=== PATIENT | female | born 1945 | race Caucasian/White ===

== ENCOUNTER 2023-03-01 10:30 | Outpatient (AMB) | payer MEDICARE, SELFPAY ==
--- NOTE | 2023-03-01 10:55 | A.OFFVIS_ITS ---
Intake Vital Signs 3 03/01/23 10:56 Height 4 ft 10.5 in Weight 148 lb BMI 30.4 BP 124/68 Blood Pressure Location Lt brachial Position Sitting Pulse 73 Pulse Source Pulse Oximeter Pulse Oximetry (%) 95 Oxygen Delivery Method Room Air Intake Visit Reasons: Emphysema Metrology Specialist Required: No Restaurant Cook: Restaurant Cook offered & declined Accompanied by: Self / Same As Patient Allergies celecoxib [From Celebrex] Allergy (Intermediate, Verified 03/01/23 11:03) dizziness aspirin Adverse Reaction (Intermediate, Verified 03/01/23 11:03) upset stomach percoct Allergy (Intermediate, Uncoded 03/01/23 11:03) hives Medication List - Last Reconciled 03/01/23 by Brit Smyth LPN albuterol sulfate 90 mcg/actuation 1 inh inhalation QID PRN amlodipine 10 mg PO DAILY atorvastatin 20 mg PO DAILY budesonide-formoterol 80-4.5 mcg/actuation (Symbicort) 1 inh inhalation BID dicyclomine 20 mg PO TID irbesartan-hydrochlorothiazide 300-12.5 mg 1 tab PO DAILY levothyroxine 25 mcg PO DAILY omeprazole 20 mg PO DAILY HPI Emphysema 2 HPI0 Details Miguelina is a pleasant 77 year old female, former smoker with 30+ pack year history, quit 30 years ago with underlying childhood asthma, rheumatoid arthritis, hypertension, osteoporosis and GERD. She was referred by her PCP for pulmonary evaluation after chest CT revealed mild emphysema, full report below. She also reports having a PFT performed but this report is not available. She is suboptimally controlled on symbicort 80-4.5mcg and continues to report dyspnea with moderate exertion, dry cough and intermittent wheezing. She denies any pertinent family history. 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 She also notes cardiac stress test which was reportedly unremarkable. [facility] Medical History (Updated 03/01/23 @ 22:07 by Kristen Farah NP) Hypertension Hyperlipidemia Hypothyroidism GERD (gastroesophageal reflux disease) IBS (irritable bowel syndrome) Hiatal hernia Rheumatoid arthritis Osteoporosis Surgical History (Updated 03/01/23 @ 10:34 by Eva Smith PA-C) History of colonoscopy (~2014) History of hysterectomy (~1980) Social History (Updated 03/01/23 @ 11:07 by rBit Smyth LPN) Patient Tobacco Use Status: Former Tobacco user Tobacco use type: Cigarette Cigarette Packs Per Day: 1 Cigarettes Per Day: 20 Years Smoked: 30 Review of Systems Const Denies chills, Denies excessive sweating, Denies fever(s), Denies headache(s) and Denies night sweats Eyes Denies dry eyes, Denies irritation and Denies itchy eyes ENT Reports Normal hearing present, Denies headache(s), Denies nasal congestion, Denies nasal discharge, Denies post nasal drip and Denies sore throat Card Denies chest pain, Denies chest pain at rest, Denies chest pain with activity, Denies claudication, Denies leg edema, Denies orthopnea and Denies paroxysmal nocturnal dyspnea Resp Denies chest congestion, Denies excessive phlegm production, Denies pain on inspiration, Denies pain with cough and Denies stridor Musc Denies myalgias Neuro Reports Normal hearing present and Denies headache(s) Endo Denies excessive sweating Audi/Lymph Denies lymphadenopathy Aller/Immun Denies itchy eyes and Denies seasonal rhinorrhea Physical Exam Vital Signs: Last Vital Signs Pulse 73 03/01/23 10:56 BP 124/68 03/01/23 10:56 Pulse Ox 95 03/01/23 10:56 Oxygen Delivery Method Room Air 03/01/23 10:56 BMI result Body Mass Index 30.4 Const General: cooperative, healthy appearing, comfortable, no acute distress, well developed and alert Orientation/consciousness: patient oriented x3 Limitations: no limitations HEENT Head: Yes normal to inspection, Yes normocephalic and Yes atraumatic Ears: hearing grossly normal bilaterally and external ears normal Eyes General: appearance normal, both eyes and all related structures Eyelids: Yes eyelids normal Sclerae: sclerae normal EOM: EOMs intact bilaterally Neck Neck: Yes normal visual inspection and Yes no lymphadenopathy Lymphatic: no lymphadenopathy noted Chest Chest palpation & inspection: normal inspection of the chest Resp Effort & Inspection: normal respiratory effort, able to speak in complete sentences, no audible wheezes, no cough, no stridor, not tachypneic, no tripod positioning and no use of accessory muscles Auscultation: clear to auscultation bilaterally Cardio Jugular venous distension: no JVD Rate: regular rate Rhythm: regular rhythm Skin Other: warm, dry General skin exam: no rashes or lesions noted Neuro General: patient oriented x3 Cranial nerves: Yes Normal hearing present Cognition (Neuro): normal cognition Gait exam (Neuro): Normal gait present Extrem General: Yes normal to inspection, Yes capillary refill normal, Yes no clubbing, cyanosis or edema and Yes no pedal edema Psych Appearance: grossly normal and well kempt Speech and movement: Normal speech and movement present and Clear speech present Affect: normal affect Attitude: cooperative Thought process: Normal thought process present Thought content: Normal thought content present Insight: Good insight present (Psych) Judgement: Good judgement present (Psych) Results Reviewed Results Reviewed: Assessment & Plan Assessment & Plan (1) Asthma: Code(s): J45.909 - Unspecified asthma, uncomplicated (2) Emphysema lung: Code(s): J43.9 - Emphysema, unspecified (3) Personal history of tobacco use: Code(s): Z87.891 - Personal history of nicotine dependence Plan Miguelina's symptoms are likely related to underlying asthma/COPD, unclear severity. Will have patient sign a release to obtain most recent PFT. Reviewed chest CT, full report above, with no findings of suspicious nodules, mild emphysematous changes noted. Will increase symbicort dose and reviewed when to use albuterol MDI. Patient will call in two weeks to review reponse to increased symbicort. All questions were answered and patient is in agreement of plan. Will follow up in 3 months or sooner if needed. Medications: New 2 budesonide-formoterol 160-4.5 mcg/actuation (Symbicort) 2 puffs inhalation Q12H 10.2 grams 3RF Coding Level of Care Code New Pt Level 4 (00830) Diagnoses Asthma J45.909 Emphysema lung J43.9 Personal history of tobacco use Z87.892
[2023-03-01 10:56] VITALS: BP 124/68; PULSE 73; O2SAT 95; BMI 30.4
== END 2023-03-01 11:44 | disposition home or self-care (01) ==
PROVIDERS: PCP Physician Assistant Medical; Visit Provider Nurse Practitioner Family
DX: J45.909 Unspecified asthma, uncomplicated (principal); J43.9 Emphysema, unspecified; Z87.891 Personal history of nicotine dependence
CPT/HCPCS: 99204

== ENCOUNTER → 2023-03-01 10:30 | Outpatient (BNVA) | payer MEDICARE, SELFPAY | PROVIDERS: PCP Physician Assistant Medical; Visit Provider Nurse Practitioner Family | DX: J45.909 Unspecified asthma, uncomplicated (principal); J43.9 Emphysema, unspecified; Z87.891 Personal history of nicotine dependence | CPT/HCPCS: 99202 ==

== ENCOUNTER 2023-09-06 08:17 | Outpatient (AMB) | payer MEDICARE, SELFPAY ==
[2023-09-06 08:22] VITALS: BP 132/68; PULSE 69; O2SAT 97; BMI 29.9
--- NOTE | 2023-09-06 08:22 | A.OFFVIS_ITS ---
Vital Signs 09/06/23 08:22 Height 4 ft 10.5 in Weight 145 lb 8 oz BMI 29.9 BP 132/68 Blood Pressure Location Lt brachial Position Sitting Pulse 69 Pulse Source Pulse Oximeter Pulse Oximetry (%) 97 Oxygen Delivery Method Room Air Intake Visit Reasons: copd Allergies celecoxib [From Celebrex] Allergy (Intermediate, Verified 09/06/23 08:26) dizziness aspirin Adverse Reaction (Intermediate, Verified 09/06/23 08:26) upset stomach percoct Allergy (Intermediate, Uncoded 09/06/23 08:26) hives HPI HPI copd: Details: Miguelina is a pleasant 78 year old female, former smoker with 30+ pack year history, quit 30 years ago with underlying childhood asthma, rheumatoid arthritis, hypertension, osteoporosis and GERD. At the last visit, her Symbicort dose was increased from 80 mcg to 160 mcg. She reports significant improvement in wheezing and dyspnea on exertion. She continues to report intermittent productive cough with whitish yellow sputum which is present in the morning only. She denies any hospitalizations or visits to urgent care since last visit. She has not required antibiotics or prednisone. She has not required any albuterol since last visit. [facility] Medical History (Updated 03/01/23 @ 22:07 by Kristen Farah NP) Hypertension Hyperlipidemia Hypothyroidism GERD (gastroesophageal reflux disease) IBS (irritable bowel syndrome) Hiatal hernia Rheumatoid arthritis Osteoporosis Surgical History (Updated 03/01/23 @ 10:34 by Eva Smith PA-C) History of colonoscopy (~2014) History of hysterectomy (~1980) Social History Patient Tobacco Use Status: Former Tobacco user Tobacco use type: Cigarette Cigarette Packs Per Day: 1 Cigarettes Per Day: 20 Years Smoked: 30 Review of Systems Const Denies chills, Denies excessive sweating, Denies fever(s), Denies headache(s) and Denies night sweats Eyes Denies dry eyes, Denies irritation and Denies itchy eyes ENT Reports Normal hearing present, Denies headache(s), Denies nasal congestion, Denies nasal discharge, Denies post nasal drip and Denies sore throat Card Denies chest pain, Denies chest pain at rest, Denies chest pain with activity, Denies claudication, Denies leg edema, Denies dyspnea, Denies orthopnea and D enies paroxysmal nocturnal dyspnea Resp Denies chest congestion, Denies cough, Denies excessive phlegm production, Denies pain on inspiration, Denies pain with cough, Denies dyspnea, Denies stridor and Denies wheezing Musc Denies myalgias Neuro Reports Normal hearing present and Denies headache(s) Endo Denies excessive sweating Audi/Lymph Denies lymphadenopathy Aller/Immun Denies itchy eyes, Denies seasonal rhinorrhea and Denies wheezing Physical Exam Vital Signs: Last Vital Signs Pulse 69 09/06/23 08:22 BP 132/68 09/06/23 08:22 Pulse Ox 97 09/06/23 08:22 Oxygen Delivery Method Room Air 09/06/23 08:22 BMI result Body Mass Index 29.9 Const General: cooperative, healthy appearing, comfortable, no acute distress, well developed and alert Orientation/consciousness: patient oriented x3 Limitations: no limitations HEENT Head: Yes normal to inspection, Yes normocephalic and Yes atraumatic Ears: hearing grossly normal bilaterally and external ears normal Eyes General: appearance normal, both eyes and all related structures Eyelids: Yes eyelids normal Sclerae: sclerae normal EOM: EOMs intact bilaterally Neck Neck: Yes normal visual inspection and Yes no lymphadenopathy Lymphatic: no lymphadenopathy noted Chest Chest palpation & inspection: normal inspection of the chest Resp Effort & Inspection: normal respiratory effort, able to speak in complete sentences, no audible wheezes, no cough, no stridor, not tachypneic, no tripod positioning and no use of accessory muscles Auscultation: clear to auscultation bilaterally Cardio Jugular venous distension: no JVD Rate: regular rate Rhythm: regular rhythm Skin Other: warm, dry General skin exam: no rashes or lesions noted Neuro General: patient oriented x3 Cranial nerves: Yes Normal hearing present Cognition (Neuro): normal cognition Gait exam (Neuro): Normal gait present Extrem General: Yes normal to inspection, Yes capillary refill normal, Yes no clubbing, cyanosis or edema and Yes no pedal edema Psych Appearance: grossly normal and well kempt Speech and movement: Normal speech and movement present and Clear speech present Affect: normal affect Attitude: cooperative Thought process: Normal thought process present Thought content: Normal thought content present Insight: Good insight present (Psych) Judgement: Good judgement present (Psych) Assessment & Plan Assessment & Plan (1) Asthma: Code(s): J45.909 - Unspecified asthma, uncomplicated Category: Medical (2) Emphysema lung: Code(s): J43.9 - Emphysema, unspecified Category: Medical (3) Personal history of tobacco use: Code(s): Z87.891 - Personal history of nicotine dependence Category: Social Hx Plan Miguelina reports significant improvement in respiratory symptoms since increasing Symbicort. Discussed possibility of adding a LAMA to regimen if symptoms worsen. At this time she would like to continue current regimen. Never received prior PFT, will have patient sign release and attempt to obtain from [facility] again, All questions were answered and patient is in agreement of plan. Will follow up in 6 months or sooner if needed. Coding Level of Care Code Est Pt Level 4 (99787) Diagnoses Asthma J45.909 Emphysema lung J43.9 Personal history of tobacco use Z87.895
== END 2023-09-06 08:49 | disposition home or self-care (01) ==
PROVIDERS: PCP Physician Assistant Medical; Visit Provider Nurse Practitioner Family
DX: J45.909 Unspecified asthma, uncomplicated (principal); J43.9 Emphysema, unspecified; Z87.891 Personal history of nicotine dependence
CPT/HCPCS: 99214

== ENCOUNTER → 2023-09-06 08:17 | Outpatient (BNVA) | payer MEDICARE, SELFPAY | PROVIDERS: PCP Physician Assistant Medical; Visit Provider Nurse Practitioner Family | DX: J43.9 Emphysema, unspecified (principal); J45.909 Unspecified asthma, uncomplicated; Z87.891 Personal history of nicotine dependence | CPT/HCPCS: 99212 ==

== ENCOUNTER 2024-08-28 09:00 | Outpatient (AMB) | payer MEDICARE, SELFPAY ==
[2024-08-28 09:03] VITALS: BP 124/58; PULSE 64; O2SAT 96; BMI 31.2
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
--- OUTSIDE RECORDS SUMMARY | 2024-08-28 09:42 | XMS_ITS | Clinical Summary ---
Author Organization [facility] Address [address] [place] [address] Care Team Providers Care Fusing Furnace Loader Name Role Phone Melissa Carpenter Primary Care Provider [phone] Medications omeprazole OTC (PriLOSEC OTC) 20 mg EC tablet Take 1 tablet (20 mg total) by mouth 1 (one) time each day. Do not crush, chew, or split. Active omeprazole OTC (PriLOSEC OTC) 20 mg EC tabletIndication s:Gastroesophage al reflux disease with esophagitis, unspecified whether hemorrhage Take 1 tablet (20 mg total) by mouth 1 (one) time each day. Do not crush, chew, or split. 30 tablet 11 03/12/2024 Active Surgical History Surgery Date Site/Laterality Comments PARTIAL HYSTERECTOMY PROCEDURE: CO SUPRACERVICAL ABDL HYSTER W/WO RMVL TUBE OVARY COLONOSCOPY 2005 PROCEDURE: CO COLONOSCOPY STOMA DX INCLUDING COLLJ SPEC SPX; COMMENT: nl ESOPHAGOGASTRODUODENOSCOPY 09/10/08 PROCEDURE: CO EGD TRANSORAL BIOPSY SINGLE/MULTIPLE; COMMENT: Esophagus Nl, 2cm hiatal hernia, mild antral gastritis-bx: mild reactive gastropathy(no H pylori), Nl small bowel-bx.:Nl Medical History Medical History Date Comments Historical Medical DX 07/31/2008 DX:COPD; C OMMENT: 20 pack years, d/c'd 1989 Family History Medical History Relation Name Comments Hypertension Brother 1 Hypertension Brother 2 Hypertension Brother 3 Diabetes Brother 4 Hypertension Father Other: early CAD Father Hypertension Mother Hypertension Sister 1 Hypertension Sister 2 Hypertension Sister 3 Relation Name Status Comments Brother 1 Brother 2 Brother 3 Brother 4 Brother 5 Father Mother Sister 1 Sister 2 Sister 3 Sister 4 Social History Tobacco Use Types Packs/Day Years Used Date Smoking Tobacco: Former Cigarettes Q uit: 01/30/1991 Alcohol Use Standard Drinks/Week Comments No 0 (1 standard drink = 0.6 oz pur e alcohol) Comments Unknown Sex and Gender Information Value Date Recorded Sex Assigned at Not on file Legal Sex Female 9:23 AM EST Gender Identity Not on file Sexual Orientation Not on file Obstetrics History Plan of Treatment Health Maintenance Due Date Last Done Comments Pneumococcal Vaccine: 50+ Years (1 of 2 - PCV) 1966 Zoster Vaccines (1 of 2) 1997 DTaP,Tdap,and Td Vaccines (2 - Td or Tdap) 04/24/2018 04/24/2008 Cholesterol Screening (Lipid Panel) 03/28/2022 Depression Screening 03/28/2022 Falls Risk Assessment 03/28/2022 Hepatitis C Screening 03/28/2022 Osteoporosis Screening (Bone Density Screening) 03/28/2022 Social Influencers of Health Screening 03/28/2022 Hypertension/CHF/CAD Annual BMP Blood Test 04/06/2022 RSV Immunization Adult Patients (1 - 1-dose 75+ series) 2022 COVID-19 Vaccine ( season) 2023 Influenza Vaccine (Season Ended) 2024 01/20/2012, 03/12/2011, 02/03/2010, Additional history exists HIB Vaccines Aged Out No longer eligi ble based on patient's age to complete this topic HPV Vaccines Aged Out No longer eligi ble based on patient's age to complete this topic Hepatitis A Vaccines Aged Out No long er eligible based on patient's age to complete this topic Hepatitis B Vaccines Aged Out No long er eligible based on patient's age to complete this topic IPV Vaccines Aged Out No longer eligi ble based on patient's age to complete this topic MMR Vaccines Aged Out No longer eligi ble based on patient's age to complete this topic Meningococcal ACWY Vaccine Aged Out N o longer eligible based on patient's age to complete this topic Meningococcal B Vaccine Aged Out No l onger eligible based on patient's age to complete this topic RSV Immunization Patients Under 20 months Aged Out No longer eligible based on patient's age to complete this topic Varicella Vaccines Aged Out No longer eligible based on patient's age to complete this topic Care Teams Fusing Furnace Loader Relationship Specialty Start Date End Date Melissa Carpenter PA [address] [place] [address] PCP - General 07/11/22
== END 2024-08-28 09:30 | disposition home or self-care (01) ==
LOC: HO.HPSW 09:01
PROVIDERS: PCP Physician Assistant Medical; Visit Provider Nurse Practitioner Family
DX: J45.909 Unspecified asthma, uncomplicated (principal); J43.9 Emphysema, unspecified; Z87.891 Personal history of nicotine dependence
CPT/HCPCS: 99214

== ENCOUNTER → 2024-08-28 09:00 | Outpatient (BNVA) | payer MEDICARE, SELFPAY | PROVIDERS: PCP Physician Assistant Medical; Visit Provider Nurse Practitioner Family | DX: J45.909 Unspecified asthma, uncomplicated (principal); J43.9 Emphysema, unspecified; Z87.891 Personal history of nicotine dependence | CPT/HCPCS: 99212 ==